=== PATIENT | female | born 1970 | race Caucasian/White ===

== ENCOUNTER 2017-07-08 04:28 | Emergency (ER) | payer BC ==
[2017-07-08] VITALS (7 sets, daily range): BP systolic 129–141; BP diastolic 64–80
[~2017-07-08] VITALS: Ht 149.9 cm; Wt 85.0 kg
[2017-07-08] MEDS ORDERED: ketamine 50 mg/ml 10ml vial IV ONE (04:35)
[2017-07-08] MEDS ORDERED: propofol 10mg/ml 20ml vial IV ONE (04:35)
[2017-07-08] MEDS ORDERED: morphine 2 MG/ML inj. syringe IV PRN ×3 (05:55→09:45)
[2017-07-08] MEDS ORDERED: ondansetron/PF 4mg/2ml inj IV ONE (06:55)
[2017-07-08 07:30] LABS: BASOPHILS % (AUTO) 0.3 % (0-1); EOSINOPHILS % (AUTO) 0.1 % (0-6); HEMATOCRIT 36.5 % (35.0-45.0); HEMOGLOBIN 12.4 g/dl (12.0-16.0); MEAN CORPUSCULAR HEMOGLOBIN 32.1 PG (27.0-31.0); MEAN CORPUSCULAR VOLUME 94.4 FL (78-98); MEAN PLATELET VOLUME 8.3 FL (7.4-10.4); MONOCYTES # (AUTO) 0.7 X10'3 (0-0.9); MONOCYTES % (AUTO) 5.4 % (2-12); NEUTROPHILS # (AUTO) 10.8 X10'3 (1.8-7.7); NEUTROPHILS % (AUTO) 86.2 % (42-75); PLATELET COUNT 217 X10'3 (140-440); RED BLOOD COUNT 3.87 X10'6 (4.20-5.60); RED CELL DISTRIBUTION WIDTH 14.1 % (11.5-14.5); WHITE BLOOD COUNT 12.5 X10'3 (4.5-11.0)
[2017-07-08 07:47] LABS: ALANINE AMINOTRANSFERASE 37 U/L (12-78); ALBUMIN 3.2 G/DL (3.4-5.0); ALBUMIN/GLOBULIN RATIO 1.1 (1.1-1.5); ALKALINE PHOSPHATASE 82 IU/L (46-116); ANION GAP 10 (8-16); ASPARTATE AMINO TRANSFERASE 24 U/L (10-37); BILIRUBIN,TOTAL 0.3 MG/DL (0.1-1.0); BLOOD UREA NITROGEN 13 MG/DL (7-18); BUN/CREATININE RATIO 15.3 (6.6-38.0); CALCIUM 7.5 MG/DL (8.5-10.1); CHLORIDE 111 MMOL/L (99-107); CREATININE 0.85 MG/DL (0.40-0.90); GLUCOSE 156 MG/DL (70-104); POTASSIUM 4.5 MMOL/L (3.5-5.1); SODIUM 142 MMOL/L (135-145); TOTAL CARBON DIOXIDE 21.5 MMOL/L (24-32); TOTAL PROTEIN 6.2 G/DL (6.4-8.2); eGFR 72 ML/MIN
[2017-07-08] MEDS ORDERED: sevoflurane 250ml liquid IH ONE (09:12)
[2017-07-08] MEDS ORDERED: propofol inj 20 ML IV ONE (09:17)
[2017-07-08] MEDS ORDERED: fentaNYL/PF 50MCG/1 ML 2ML syringe ONE (09:17)
[2017-07-08] MEDS ORDERED: ringers solution, lacted 1,000 ML IV SCH (09:44)
[2017-07-08] MEDS ORDERED: meperidine/PF 25mg/ml syringe IV PRN ×3 (09:45)
[2017-07-08] MEDS ORDERED: ondansetron/PF 4mg/2ml inj IV PRN (09:45)
[2017-07-08] MEDS ORDERED: meperidine/PF 25mg/ml syringe ONE (09:45)
[2017-07-08] MEDS ORDERED: proCHLORperazine 10 MG/2 ml inj IV PRN (09:45)
== END 2017-07-08 11:20 | disposition home or self-care (01) ==
LOC: ER 04:29
DX: S43.085A Other dislocation of left shoulder joint, initial encounter (principal); W19.XXXA Unspecified fall, initial encounter; Y93.89 Activity, other specified; Y92.89 Other specified places as the place of occurrence of the external cause; Y99.9 Unspecified external cause status
CPT/HCPCS: 23650; 36415; 73020; 80053; 85025; 93005; 94760; 96374; 96375; 96376; 99152; 99153; 99285; J2175; J2270; J2405; J2704; J3010; J7030; A4565; A4620; J7120